=== PATIENT | female | born 1930 | race Caucasian/White ===

== ENCOUNTER 2017-08-24 10:49 | Emergency (ER) | payer OTHER ==
[~2017-08-24] VITALS: Ht 162.6 cm; Wt 69.4 kg
--- NOTE | ~2017-08-24 | EKG ---
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: sharda : 1930 Requested By: Harry Romero Order Number: [id number] MD: Jose Escobar Measurements Intervals [place] Rate: 84 P: 6 SD: 173 QRS: 40 QRSD: 129 T: 37 QT: 410 QTc: 485 Interpretive Statements Sinus rhythm Right bundle branch block No previous ECG available for comparison Electronically Signed On 08-24-2017 13:52:53 [employer] by Jose Escobar [email or web address] <ELECTRONICALLY SIGNED> By: Jose Escobar MD, [facility] 08/24/17 1352 1113 1113 Jose Escobar MD, FACC /EPI
[2017-08-24 11:24] LABS: HEMATOCRIT 44.3 % (37.0-47.0); HEMOGLOBIN 15.2 gm/dL (12.0-15.0); MCH 31.7 pg (26.0-34.0); MCHC 34.3 g/dL (28.0-37.0); MCV 92.4 fL (80.0-100.0); RBC 4.8 mil/uL (4.20-5.00); RDW 13.4 % (10.5-14.5); WBC 6.4 thou/uL (4.0-11.0)
[2017-08-24 11:32] LABS: ANION GAP 7 mmol/L (7-16); BUN 16 mg/dL (7-18); CALCIUM 9.8 mg/dL (8.5-10.1); CHLORIDE 103 mmol/L (98-107); CO2 28 mmol/L (21-32); CREATININE 0.9 mg/dL (0.6-1.0); GLUCOSE 110 mg/dL (74-106); SODIUM 138 mmol/L (136-145)
[2017-08-24 11:41] LABS: TROPONIN-I < 0.04 ng/mL (<0.06)
== END 2017-08-24 13:30 | disposition home or self-care (01) ==
LOC: ER 10:49
PROVIDERS: Emergency Medicine
DX: R07.89 Other chest pain (principal); V89.2XXA Person injured in unspecified motor-vehicle accident, traffic, initial encounter; Y93.I9 Activity, other involving external motion; Y92.89 Other specified places as the place of occurrence of the external cause; Y99.8 Other external cause status